=== PATIENT | female | born 1960 | race Caucasian/White ===

== ENCOUNTER → 2021-06-16 12:17 | Outpatient (CLI) | payer BC, SELFPAY | PROVIDERS: Visit Provider Physician Assistant | DX: R30.0 Dysuria (principal) | CPT/HCPCS: 87086 ==

== ENCOUNTER → 2021-06-30 10:55 | Outpatient (CLI) | payer BC, SELFPAY ==
[2021-06-30 12:03] LABS: Basophils # 0.1 K/mm3 (0-0.2); Basophils % 0.7 % (0.1-2.0); Eosinophils % 0.3 % (0.1-12.0); Hematocrit 40.6 % (37.0-47.0); Hemoglobin 13.3 g/dL (12.2-16.2); Lymphocytes % 29.7 % (10-50); Mean Corpuscular HGB Conc 32.8 g/dL (31.8-35.4); Mean Corpuscular Hemoglobin 29.1 pg (27.0-31.2); Mean Corpuscular Volume 88.7 fl (81-99); Mean Platelet Volume 8.7 fl (7.4-10.4); Monocytes # 0.3 K/mm3 (0.1-1.0); Neutrophils # 4.3 K/mm3 (1.8-7.8); Neutrophils % 64.3 % (37.0-80.0); Platelet Count 371 K/mm3 (142-424); Red Blood Count 4.58 M/mm3 (4.20-5.40); Red Cell Distribution Width 13.4 % (11.5-17.5); White Blood Count 6.7 K/mm3 (4.8-10.8)
[2021-06-30 12:28] LABS: Chloride 101 mmol/L (98-107); Potassium 4.2 mmoL/L (3.5-5.1); Sodium 135 mmol/L (136-145)
[2021-06-30 12:30] LABS: Alanine Aminotransferase 18 U/L (12-78); Anion Gap 11.2 mEq/L (5-15); Aspartate Amino Transferase 39 U/L (14-36); Bilirubin,Unconjugated 0.7 mg/dL (0.0-1.1); Blood Urea Nitrogen 20 mg/dl (7-17); Carbon Dioxide 27 mmol/L (22.0-30.0); Estimated Glomerular Filt Rate 72 ml/min (>60); GFR (African American) 88 ML/MIN (>60)
[2021-06-30 12:31] LABS: Albumin Level 5.3 g/dl (3.5-5.0); Alkaline Phosphatase 67 U/L (38-126); Bilirubin,Direct 0.1 mg/dl (0.0-0.4); Bilirubin,Indirect 0.7 mg/dL (0.0-0.9); Bilirubin,Total 0.8 mg/dl (0.2-1.3); Calcium 9.6 mg/dl (8.4-10.2); Chol/HDL Ratio 3.9 (1-3.5); Cholesterol 259 mg/dl (140-200); Glucose 97 mg/dl (74-100); HDL Cholesterol 66 mg/dl (40-60); Total Protein,Serum 7.3 g/dl (6.3-8.2); Triglycerides 106 mg/dl (30-150); VLDL Cholesterol 21 mg/dL (0-40)
[2021-06-30 12:42] LABS: Direct LDL Cholesterol 156.41 mg/dL (100-129)
[2021-06-30 12:49] LABS: Free T4 (Free Thyroxine) 1.16 ng/dl (0.78-2.19)
[2021-06-30 13:02] LABS: Thyroid Stimulating Hormone 2.32 uIU/mL (0.465-4.68)
== END ==
PROVIDERS: PCP Family Medicine; Visit Provider Urology
DX: R06.00 Dyspnea, unspecified (principal); R07.9 Chest pain, unspecified; R42 Dizziness and giddiness; R00.0 Tachycardia, unspecified; R00.2 Palpitations; R53.1 Weakness; I71.2 Thoracic aortic aneurysm, without rupture; R53.83 Other fatigue; R91.8 Other nonspecific abnormal finding of lung field
CPT/HCPCS: 80048; 80061; 80076; 84439; 84443; 85025; 93270

== ENCOUNTER → 2021-07-07 06:41 | Outpatient (CLI) | payer BC, SELFPAY ==
--- NOTE | 2021-07-07 06:42 | NM_ITS ---
APPROVED REPORT Exam: Nuclear Stress Test Indication: chest pain..short of breath..fatigue Patient Location: Outpatient Stress Tech: Leanne Cuenca [place] Tech:Alize Thakkar DEBORAHWarren RT(R)(N) Ht: 5 ft 9 in Wt: 133 lbs Bra Size: 32b HR: 72 bpm BP: 135/83 mmHg BSA: 1.74 m2 BMI: 19.6 History: chest pain..short of breath..fatigue Procedure: Patient exercised on Odin protocol 6:54 minutes and sec, resting heart rate 72 bpm, resting blood pressure 135/83 mmHg, with exercise maximum heart rate achived was 145 bpm which is 92 % of the maximum predicted heart rate and blood pressure was 158/83 mmHg. Patient denied any complaint of chest pain. Patient has good exercise capacity, achieved 10.1 METs of workload on treadmill, the blood pressure response to exercise was Adequate. Electrocardiogram Resting electrocardiogram shows sinus rhythm, with exercise there is less than 1.[address] segment depression noted from the baseline EKG. The EKG portion of the exercise Myoview is negative for ischemia. Cardiac Stress and Resting SPECT Images: Cardiac Stress and Resting SPECT images were obtained using technetium 99m Myoview 30.5 mCi stress and 10.75 mCi at rest. Gated SPECT for analysis of segmental wall motion and calculation of the ejection fraction also done. Prone images were also obtained. Cardiac stress and rest SPECT may show uniform myocardial activity without segmental perfusion abnormality, computer derived ejection fraction is 50% with no regional wall motion abnormality, right ventricle is normal size and contractility. Conclusion: 1. The EKG portion of the exercise Myoview is negative for ischemia, patient has good exercise capacity achieved 10.1 METs of workload treadmill, the blood pressure response to exercise was adequate, there was no exercise-induced chest discomfort. 2. No scintigraphic evidence of reversible ischemia seen, compared right ejection fraction 50% with no regional wall motion abnormality, right ventricle is normal size and contractility. 3. Normal exercise Myoview study. Electronically signed by : Pelon Davis MD 07/08/2021 14:46:53
--- NOTE | 2021-07-07 06:42 | CA_ITS ---
APPROVED REPORT Exam: Exercise Treadmill Technologist: Leanne Cuenca, Ht: 5 ft 9 in Wt: 130 lbs BSA: 1.72 m2 HR: 72 bpm BP: 135/83 mmHg Rhythm: sinus rhythm Medical History Medical History: HTN, Hyperlipidemia Medications: Aspirin,,,,, Metoprolol,,,,, Fish Oil,,,,, TAMSULOSIN,,,,, Vit C,,,,, Vit B12,,,,, AmiTRIPTYLINE,,,,, Multivitamin,,,,, Galzin,,,,, Cardiac Risk Factors: HTN, Hyperlipidemia Stress Test Details Test: Gisela HR Resting HR: 91 bpm Max Heart Rate (APMHR): 157.148807 bpm Max HR Achieved: 145 bpm Target HR (85% APMHR): 133.354383 bpm % of APMHR: 92.36 Recovery HR: 108 bpm BP Resting BP: 111/72 mmHg Max BP: 158/83 mmHg Recovery BP: 157.0/73.0 mmHg ECG Resting ECG: Sinus rhythm Clinical Exercise duration: 06:54 min Highest Stage Achieved: Exercise capacity: 10.1 METs Stress ECG Conclusion During gisela protocol exericse 6:54, METS 10.1. Stopped due to SOB, resolved in recovery. NO CP noted. PVCs vent couplets bigeminy. Greater than 1.5mm ST response. Images to follow. Electronically signed by : Pelon Davis MD 07/08/2021 14:44:34
== END ==
PROVIDERS: PCP Family Medicine; Visit Provider Urology
DX: R07.9 Chest pain, unspecified (principal); R06.00 Dyspnea, unspecified; R42 Dizziness and giddiness; R00.0 Tachycardia, unspecified; R00.2 Palpitations; I71.2 Thoracic aortic aneurysm, without rupture; R53.1 Weakness; R53.83 Other fatigue; R91.8 Other nonspecific abnormal finding of lung field
CPT/HCPCS: 78452; 93017; A9502

== ENCOUNTER → 2022-07-10 08:29 | Outpatient (CLI) | payer BC, SELFPAY ==
--- NOTE | 2022-07-10 08:30 | CT_ITS ---
FINAL REPORT CLINICAL HISTORY: aneurysm FINDINGS: Thin section axial CT images of the chest were obtained with contrast. 3D reformatted images were also obtained. This study was performed with techniques to keep radiation doses as low as reasonably achievable (ALARA). Individualized dose reduction techniques using automated exposure control or adjustment of mA and/or kV according to the patient''s size were employed. There is no evidence of pulmonary embolism. There is ectasia of the ascending aorta measuring 39 mm. There is no evidence of mediastinal or hilar mass or adenopathy. There is no evidence of pulmonary mass or nodule. No localized inflammatory process is seen within the lungs. There is a calcified granuloma in the right upper lobe. Limited images of the upper abdomen reveal a left renal cyst. IMPRESSION: No evidence of pulmonary embolism. Ectasia of the ascending aorta. Reviewed, Interpreted and Dictated by Galdino Casarez III, MD Transcribed by Hannah Sewell Authenticated and [facility]
[2022-07-10 08:58] LABS: Blood Urea Nitrogen 18 mg/dl (7-17); Estimated Glomerular Filt Rate 72 ml/min (>60); GFR (African American) 87 ML/MIN (>60)
== END ==
LOC: RAD 08:30
PROVIDERS: PCP Family Medicine; Visit Provider Nurse Practitioner Family
DX: I71.21 Aneurysm of the ascending aorta, without rupture (principal)
CPT/HCPCS: 36415; 71275; 82565; 84520; Q9967